=== PATIENT | female | born 1995 | race African-American/Black ===

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

== ENCOUNTER 2017-09-24 16:30 | Emergency (ER) | payer MEDICAID ==
[~2017-09-24] VITALS: Ht 172.7 cm; Wt 60.0 kg
[2017-09-24 17:46] VITALS: BP 118/69
[2017-09-24 18:01] LABS: BASOPHILS % 0.4 % (0.0-2.0); EOSINOPHILS % 2.5 % (0.0-5.0); HEMATOCRIT. 34.2 % (36.0-48.0); HEMOGLOBIN. 11.6 g/dL (12.0-16.0); LYMPHOCYTES % 34.2 % (20.0-50.0); MEAN CORPUSCULAR HEMOGLOBIN 31.9 pg (28.0-32.0); MEAN PLATELET VOLUME 9.1 fl (7.4-10.4); MONOCYTES % 10.2 % (2.0-8.0); NEUTROPHILS % 52.7 % (40.0-76.0); PLATELET 175 x1000/uL (130-400); RED BLOOD CELL COUNT 3.64 mill/uL (4.2-5.4); RED CELL DISTRIBUTION WIDTH 12.7 % (11.6-14.6)
[2017-09-24 18:06] LABS: CHLORIDE 105 mEq/L (98-107)
[2017-09-24] MEDS: SODIUM CHLORIDE 0.9% 1,000 ML IV NR ×3 (19:18→20:32)
[2017-09-24 19:32] LABS: *AMPHETAMINES SCREEN URINE NEGATIVE (NEGATIVE); *BARBITURATES SCREEN URINE NEGATIVE (NEGATIVE); *BENZODIAZEPINES SCREEN URINE NEGATIVE (NEGATIVE); *COCAINE SCREEN URINE NEGATIVE (NEGATIVE); METHADONE URINE SCREEN NEGATIVE (NEGATIVE)
[2017-09-24 19:33] LABS: CANNABINOID URINE SCREEN PRESUMTIVE POSITIVE (NEGATIVE); OPIATES URINE SCREEN NEGATIVE (NEGATIVE); PHENCYCLIDINE URINE SCREEN NEGATIVE (NEGATIVE)
== END 2017-09-24 21:33 | disposition home or self-care (01) ==
LOC: ER 18:26
DX: N93.8 Other specified abnormal uterine and vaginal bleeding (principal); Z30.012 Encounter for prescription of emergency contraception; F41.9 Anxiety disorder, unspecified
CPT/HCPCS: 36415; 76856; 80053; 80305; 81025; 84702; 85025; 86850; 86900; 86901; 99285; G0482; J7030; Z7610